=== PATIENT | female | born 1945 | race Caucasian/White ===

== ENCOUNTER → 2021-06-09 | Outpatient (CLI) | payer MEDICARE ==
[~2021-06-09] MED LIST: ACYC200 PO; ALBU90OI61 INH; ALPR1 PO; AMLO5 PO; ASPI325EC PO; BACL20 PO; CALCIUM 600 +1 EA11 PO; CHLO25B PO; CYCL10 PO; Coq-1030 MG PO; ERGO400 PO; FISH1000 PO; FLUSAL2505 INH; Flomax0.4 MG PO; HYDR1TAB94 PO; IBUP600 PO; LAVAP17G PO; LIVALO2 MG PO; LOSA50 PO; NORT10 PO; Prilosec Otc20 MG; VALS80 PO; VIT1CAPS12; ZOLP10 PO
[2021-06-09 17:45] LABS: U Amphetamine Screen Not Detected; U Barbituate Screen Not Detected; U Benzodiazapine Screen DETECTED; U Buprenorphine Screen Not Detected; U Cannabinoids Screen Not Detected; U Cocaine Screen Not Detected; U Methadone Screen Not Detected; U Methamphetamine Screen Not Detected; U Opiates Screen Not Detected; U Oxycodone Screen Not Detected; U Phencyclidine Screen Not Detected; U Propoxyphene Screen Not Detected
== END ==
LOC: LAB SHORT 16:27
PROVIDERS: Nurse Practitioner Family
DX: Z79.891 Long term (current) use of opiate analgesic (principal)

== ENCOUNTER → 2022-05-28 | Outpatient (CLI) | payer MEDICARE ==
[2022-05-28 17:48] LABS: U Amphetamine Screen Not Detected; U Barbituate Screen Not Detected; U Benzodiazapine Screen DETECTED; U Buprenorphine Screen Not Detected; U Cannabinoids Screen Not Detected; U Cocaine Screen Not Detected; U Methadone Screen Not Detected; U Methamphetamine Screen Not Detected; U Opiates Screen Not Detected; U Oxycodone Screen Not Detected; U Phencyclidine Screen Not Detected; U Propoxyphene Screen Not Detected
== END | disposition home or self-care (01) ==
LOC: LAB SHORT 15:30 → LAB 15:30 → EDSTATUS 05-28 16:35 → LAB FUT 05-28 16:35
PROVIDERS: Physician Assistant
DX: Z51.81 Encounter for therapeutic drug level monitoring (principal); Z79.899 Other long term (current) drug therapy

== ENCOUNTER → 2023-06-05 | Outpatient (CLI) | payer MEDICARE | LOC: LAB SHORT 08:16 → LAB 08:16 | DX: L82.0 Inflamed seborrheic keratosis (principal) | CPT/HCPCS: 88305 ==